=== PATIENT | male | born 1995 | race Caucasian/White ===

== ENCOUNTER 2017-07-09 12:02 | Emergency (ER) | payer MEDICARE, MEDICAID ==
[2017-07-09 13:59] VITALS: BP 102/49
== END 2017-07-09 14:48 | disposition left against medical advice (07) ==
LOC: ED 12:02
DX: M79.606 Pain in leg, unspecified (principal); Z53.21 Procedure and treatment not carried out due to patient leaving prior to being seen by health care provider

== ENCOUNTER 2017-10-29 16:26 | Emergency (ER) | payer MEDICARE, MEDICAID ==
[2017-10-29 17:20] LABS: Hematocrit 44 % (42-52); Hemoglobin 14.7 g/dl (14.0-18.0); Mean Corpuscular HGB Conc 34 g/dl (31-36); Mean Corpuscular Hemoglobin 30 pg (27-31); Mean Corpuscular Volume 89 fL (80-94); Mean Platelet Volume 8 um3 (7.4-10.4); Red Cell Distribution Width 13 % (10.5-15); White Blood Count 11.4 10^3/ul (3.5-10.8)
[2017-10-29 17:34] LABS: ALT 17 U/L (7-52); AST 14 U/L (13-39); Albumin 4.5 g/dL (3.2-5.2); Alkaline Phosphatase 55 U/L (34-104); Anion Gap 6 mmol/L (2-11); BUN/Creatinine Ratio 15.2 (8-20); Blood Urea Nitrogen 15 mg/dL (6-24); CO2 Carbon Dioxide 28 mmol/L (22-32); Calcium 9.4 mg/dL (8.6-10.3); Chloride 103 mmol/L (101-111); EGFR African American 122.7 (>60); EGFR Non-African American 95.4 (>60); Globulin 2.8 g/dL (2-4); Glucose 101 mg/dL (70-100); Potassium 4.1 mmol/L (3.5-5.0); Sodium 137 mmol/L (133-145); Total Protein 7.3 g/dL (6.4-8.9)
[2017-10-29 17:53] LABS: Urine Bilirubin Negative (Negative); Urine Glucose Negative (Negative); Urine Nitrite Negative (Negative)
[2017-10-29 18:02] LABS: Acetaminophen < 15 mcg/mL; Alcohol < 10 mg/dL (<10); Salicylate < 2.50 mg/dL (<30)
[2017-10-29 18:04] LABS: Benzodiazepine Urine Screen None Detected (None Detect)
[2017-10-29 18:17] LABS: TSH (Thyroid Stimulating Horm) 0.86 mcIU/mL (0.34-5.60)
[2017-10-29] MEDS ORDERED: Nicotine Inhaler* 10 MG AMP INH PRN (18:51)
[2017-10-29] MEDS ORDERED: Mouth Piece, Nicotine* 1 EACH CARTRIDGE ONE (18:53)
[2017-10-29] MEDS ORDERED: Nicotine Inhaler* 10 MG AMP ONE (18:53)
[2017-10-29] MEDS ORDERED: Acetaminophen TAB* 325 MG PO ONE (21:02)
[2017-10-29] MEDS ORDERED: Acetaminophen TAB* 325 MG ONE (21:04)
[2017-10-29 22:15] VITALS: BP 176/89
--- NOTE | 2017-10-29 22:35 | ED ---
Fernie Plunkett Benjamin, scribed for Goyo Faulkner MD on 10/29/17 at 1722 . Psychiatric Complaint - HPI Summary HPI Summary: 22yo male brought in 941 for SI. Pt admits having thoughts, but denies any attempts or plans. Lots of stressful situation revolving him and pt feels very frustrated. - History Of Current Complaint Chief Complaint: EDMentalHealth Time Seen by Provider: 10/29/17 16:50 Hx Obtained From: Patient Onset/Duration: Sudden Onset, Lasting Days, Still Present Timing: Constant Severity Initially: Mild Severity Currently: Mild Character: Depressed, Frustrated Aggravating Factor(s): Recent Stress Alleviating Factor(s): Nothing Associated Signs And Symptoms: Positive: Negative Has Suicidal: Reports: Thoughts. Denies: With A Plan - Allergies/Home Medications Allergies/Adverse Reactions: Allergies Allergy/AdvReac Type Severity Reaction Status Date / Time Amoxicillin Allergy Unknown Verified 10/29/17 16:48 Reaction Details Ibuprofen [From Advil] Allergy Unknown Verified 10/06/15 12:32 Reaction Details Home Medications: Home Medications Methylphenidate ER TAB* [Concerta ER TAB*] 18 mg PO DAILY 10/29/17 [History Confirmed 10/29/17] QUEtiapine TAB* [SEROquel TAB*] 100 mg PO BEDTIME 10/29/17 [History Confirmed ] carBAMazepine TAB(*) [TEGretol TAB(*)] 200 mg PO BID 10/29/17 [History Confirmed 10/29/17] PMH/Surg Hx/FS Hx/Imm Hx - Immunization History Date of Tetanus Vaccine: Unk Date of Influenza Vaccine: None Infectious Disease History: No Infectious Disease History: Denies: Traveled Outside the [place] in Last 30 Days - Family History Known Family History: Positive: Other - psych disorders Negative: Cardiac Disease - Social History Alcohol Use: None Substance Use Type: Reports: None Smoking Status (MU): Heavy Every Day Tobacco Smoker Review of Systems Constitutional: Negative Eyes: Negative ENT: Negative Cardiovascular: Negative Respiratory: Negative Gastrointestinal: Negative Genitourinary: Negative Musculoskeletal: Negative Skin: Negative Neurological: Negative Positive: Depressed, Other - SI All Other Systems Reviewed And Are Negative: Yes Physical Exam Triage Information Reviewed: Yes Vital Signs On Initial Exam: Initial Vitals Temp Pulse Resp BP Pulse Ox 99.5 F 68 16 117/55 99 10/29/17 16:46 10/29/17 16:46 10/29/17 16:46 10/29/17 16:46 10/29/17 16:46 Vital Signs Reviewed: Yes Appearance: Positive: Well-Appearing, No Pain Distress, Well-Nourished Skin: Positive: Warm, Skin Color Reflects Adequate Perfusion, Dry Head/Face: Positive: Normal Head/Face Inspection Eyes: Positive: EOMI, [place] ENT: Positive: Normal ENT inspection Neck: Positive: Supple, Nontender Respiratory/Lung Sounds: Positive: Clear to Auscultation, Breath Sounds Present Cardiovascular: Positive: RRR Abdomen Description: Positive: Nontender, Soft Bowel Sounds: Positive: Present Musculoskeletal: Positive: Strength/ROM Intact Neurological: Positive: Sensory/Motor Intact, Alert, Oriented to Person Place, Time Psychiatric: Positive: Affect/Mood Appropriate Diagnostics - Vital Signs Vital Signs Temp Pulse Resp BP Pulse Ox 10/29/17 16:46 99.5 F 68 16 117/55 99 - Laboratory Lab Results: Lab Results 10/29/17 10/29/17 10/29/17 Range/Units 17:11 17:11 17:36 WBC 11.4 H (3.5-10.8) 10^3/ul RBC 4.90 (4.0-5.4) 10^6/ul Hgb 14.7 (14.0-18.0) g/dl Hct 44 (42-52) % MCV 89 (80-94) fL MCH 30 (27-31) pg MCHC 34 (31-36) g/dl RDW 13 (10.5-15) % Plt Count 270 (150-450) 10^3/ul MPV 8 (7.4-10.4) um3 Neut % (Auto) 71.3 (38-83) % Lymph % (Auto) 16.9 L (25-47) % [place] % (Auto) 8.4 (1-9) % Eos % (Auto) 2.8 (0-6) % Baso % (Auto) 0.6 (0-2) % Absolute Neuts (auto) 8.2 H (1.5-7.7) 10^3/ul Absolute Lymphs (auto) 1.9 (1.0-4.8) 10^3/ul Absolute Monos (auto) 1.0 H (0-0.8) 10^3/ul Absolute Eos (auto) 0.3 (0-0.6) 10^3/ul Absolute Basos (auto) 0.1 (0-0.2) 10^3/ul Absolute Nucleated RBC 0 10^3/ul Nucleated RBC % 0 Sodium 137 (133-145) mmol/L Potassium 4.1 (3.5-5.0) mmol/L Chloride 103 (101-111) mmol/L Carbon Dioxide 28 (22-32) mmol/L Anion Gap 6 (2-11) mmol/L BUN 15 (6-24) mg/dL Creatinine 0.99 (0.67-1.17) mg/dL Est GFR ( Amer) 122.7 (>60) Est GFR (Non-Af Amer) 95.4 (>60) BUN/Creatinine Ratio 15.2 (8-20) Glucose 101 H (70-100) mg/dL Calcium 9.4 (8.6-10.3) mg/dL Total Bilirubin 0.40 (0.2-1.0) mg/dL AST 14 (13-39) U/L ALT 17 (7-52) U/L Alkaline Phosphatase 55 (34-104) U/L Total Protein 7.3 (6.4-8.9) g/dL Albumin 4.5 (3.2-5.2) g/dL Globulin 2.8 (2-4) g/dL Albumin/Globulin Ratio 1.6 (1-3) TSH 0.86 (0.34-5.60) mcIU/mL Urine Color Urine Appearance Urine pH (5-9) Ur Specific [place] (1.010-1.030) Urine Protein (Negative) Urine Ketones (Negative) Urine Blood (Negative) Urine Nitrate (Negative) Urine Bilirubin (Negative) Urine Urobilinogen (Negative) Ur Leukocyte Esterase (Negative) Urine Glucose (Negative) Salicylates < 2.50 (<30) mg/dL Urine Opiates Screen None detected (None Detect) Acetaminophen < 15 mcg/mL Ur Barbiturates Screen None detected (None Detect) Ur Phencyclidine Scrn None detected (None Detect) Ur Amphetamines Screen None detected (None Detect) U Benzodiazepines Scrn None detected (None Detect) Urine Cocaine Screen None detected (None Detect) U Cannabinoids Screen None detected (None Detect) Serum Alcohol < 10 (<10) mg/dL 10/29/17 Range/Units 17:36 WBC (3.5-10.8) 10^3/ul RBC (4.0-5.4) 10^6/ul Hgb (14.0-18.0) g/dl Hct (42-52) % MCV (80-94) fL MCH (27-31) pg MCHC (31-36) g/dl RDW (10.5-15) % Plt Count (150-450) 10^3/ul MPV (7.4-10.4) um3 Neut % (Auto) (38-83) % Lymph % (Auto) (25-47) % [place] % (Auto) (1-9) % Eos % (Auto) (0-6) % Baso % (Auto) (0-2) % Absolute Neuts (auto) (1.5-7.7) 10^3/ul Absolute Lymphs (auto) (1.0-4.8) 10^3/ul Absolute Monos (auto) (0-0.8) 10^3/ul Absolute Eos (auto) (0-0.6) 10^3/ul Absolute Basos (auto) (0-0.2) 10^3/ul Absolute Nucleated RBC 10^3/ul Nucleated RBC % Sodium (133-145) mmol/L Potassium (3.5-5.0) mmol/L Chloride (101-111) mmol/L Carbon Dioxide (22-32) mmol/L Anion Gap (2-11) mmol/L BUN (6-24) mg/dL Creatinine (0.67-1.17) mg/dL Est GFR ( Amer) (>60) Est GFR (Non-Af Amer) (>60) BUN/Creatinine Ratio (8-20) Glucose (70-100) mg/dL Calcium (8.6-10.3) mg/dL Total Bilirubin (0.2-1.0) mg/dL AST (13-39) U/L ALT (7-52) U/L Alkaline Phosphatase (34-104) U/L Total Protein (6.4-8.9) g/dL Albumin (3.2-5.2) g/dL Globulin (2-4) g/dL Albumin/Globulin Ratio (1-3) TSH (0.34-5.60) mcIU/mL Urine Color Yellow Urine Appearance Clear Urine pH 6.0 (5-9) Ur Specific [place] 1.028 (1.010-1.030) Urine Protein Negative (Negative) Urine Ketones Negative (Negative) Urine Blood Negative (Negative) Urine Nitrate Negative (Negative) Urine Bilirubin Negative (Negative) Urine Urobilinogen Negative (Negative) Ur Leukocyte Esterase Negative (Negative) Urine Glucose Negative (Negative) Salicylates (<30) mg/dL Urine Opiates Screen (None Detect) Acetaminophen mcg/mL Ur Barbiturates Screen (None Detect) Ur Phencyclidine Scrn (None Detect) Ur Amphetamines Screen (None Detect) U Benzodiazepines Scrn (None Detect) Urine Cocaine Screen (None Detect) U Cannabinoids Screen (None Detect) Serum Alcohol (<10) mg/dL Result Diagrams: 10/29/17 17:11 10/29/17 17:11 Lab Statement: Any lab studies that have been ordered have been reviewed, and results considered in the medical decision making process. Course/Dx - Course Course Of Treatment: BP noted. Allergies noted. Medications reviewed. Medically cleared at 1816 hour. - Differential Dx/Clinical Impression Provider Diagnosis: Mental health problem Discharge - Discharge Plan Condition: Stable Disposition: HOME Referrals: [facility] [Outside] - As Soon As Possible (Go to your schedule about with [facility]) Yanira Reeves MD [Primary Care Provider] - The documentation as recorded by the Fernie novak Benjamin accurately reflects the service I personally performed and the decisions made by me, Goyo Faulkner MD.
== END 2017-10-29 22:31 | disposition home or self-care (01) ==
LOC: ED 16:26
DX: Z00.8 Encounter for other general examination (principal)
CPT/HCPCS: 36415; 80053; 80307; 80320; 80329; 81003; 84443; 85025; 99285; A9270-GY; G0480

== ENCOUNTER 2018-06-18 13:45 | Emergency (ER) | payer MEDICARE, MEDICAID ==
[2018-06-18 14:03] VITALS: BP 103/46
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
== END 2018-06-18 16:03 | disposition home or self-care (01) ==
LOC: UCEAST 13:45
DX: M25.561 Pain in right knee (principal); M25.531 Pain in right wrist; M54.9 Dorsalgia, unspecified; Z88.0 Allergy status to penicillin; Z88.1 Allergy status to other antibiotic agents; F17.200 Nicotine dependence, unspecified, uncomplicated
CPT/HCPCS: 72070; 72110; 99212; G0463

== ENCOUNTER 2019-01-14 19:20 | Emergency (ER) | payer MEDICARE, MEDICAID ==
[2019-01-14 19:58] VITALS: BP 126/66
[2019-01-14] MEDS ORDERED: Amoxicillin/Clavulanate TAB* 875 MG PO ONE (20:04)
[2019-01-14] MEDS ORDERED: Acetaminophen TAB* 325 MG PO ONE (20:05)
--- NOTE | 2019-01-14 20:13 | UC ---
Ear Complaint HPI - HPI Summary HPI Summary: 23-year-old otherwise healthy male presents with bilateral ear pain that began this morning. He states that his right ear began to hurt first and then he lost hearing in it. Shortly thereafter, his left ear began to hurt and now is hurting more significantly than the right. He reports that he had cough and cold symptoms with congestion and a proximal a week ago. He denies any fever or shakes or chills and has had no nausea vomiting or diarrhea. He is a smoker. Nobody else has been ill in his home. - History of Current Complaint Chief Complaint: UCEar Stated Complaint: EAR COMPLAINT Time Seen by Provider: 01/14/19 19:45 Hx Obtained From: Patient Pain Intensity: 8 - Allergies/Home Medications Allergies/Adverse Reactions: Allergies Allergy/AdvReac Type Severity Reaction Status Date / Time amoxicillin Allergy Rash Verified 01/14/19 19:53 ibuprofen [From Advil] Allergy Rash Verified 01/14/19 19:53 PMH/Surg Hx/FS Hx/Imm Hx Previously Healthy: Yes - Surgical History Surgical History: None - Family History Known Family History: Positive: Other - psych disorders Negative: Cardiac Disease - Social History Alcohol Use: None Alcohol Amount: 8 months clean Substance Use Type: Marijuana Substance Use Comment - Amount & Last Used: occasionally Smoking Status (MU): Heavy Every Day Tobacco Smoker Review of Systems All Other Systems Reviewed And Are Negative: Yes Constitutional: Negative: Fever Skin: Negative: Rash Eyes: Positive: Negative ENT: Positive: Ear Ache, Other. Negative: Dental Pain, Sore Throat, Nasal Discharge Respiratory: Negative: Cough - Muffled hearing Cardiovascular: Positive: Negative Physical Exam Triage Information Reviewed: Yes Appearance: Well-Appearing, No Pain Distress, Well-Nourished Vital Signs: Initial Vital Signs Temp 98.3 F 01/14/19 19:53 Pulse 96 01/14/19 19:53 Resp 18 01/14/19 19:53 BP 126/66 01/14/19 19:53 Pulse Ox 98 01/14/19 19:53 Eye Exam: Normal ENT: Positive: Pharynx normal, TM bulging - With exudative effusions, TM red, Other - No mastoid tenderness or redness. Negative: Nasal congestion, Nasal drainage, Tonsillar swelling, Tonsillar exudate, Dental tenderness, Sinus tenderness Neck: Positive: Supple, Nontender, No Lymphadenopathy Respiratory: Positive: Lungs clear Cardiovascular: Positive: RRR Neurological Exam: Normal Psychological Exam: Normal Skin Exam: Normal Ear Complaint Course/Dx - Course Course Of Treatment: Nurse's notes reviewed. Patient with bilateral otitis media with exudative effusions. He is at risk for perforation. He is placed on decongestant, first dose of Augmentin given here. He states that he can take amoxicillin but lists allergy to penicillin which gave him a mild rash as a child. He cannot take ibuprofen. Tylenol was given. Topical lidocaine in the ears helped his pain. - Differential Dx/Diagnosis Provider Diagnosis: Suppurative otitis media of both ears Discharge - Sign-Out/Discharge Documenting (check all that apply): Patient Departure All imaging exams completed and their final reports reviewed: No Studies - Discharge Plan Condition: Improved Disposition: HOME Prescriptions: Amoxicillin/Clavulanate TAB* [Augmentin TAB 875*] 875 mg PO BID #19 tab Guaifenesin/Pseudo 600/60(NF) [Mucinex D 600/60 (NF)] 1 tab PO Q12H PRN #12 tab PRN Reason: congestion/ear pain Patient Education Materials: Ear Infection (ED) Forms: *Work Release Referrals: [facility] [Outside] [facility] [Outside] Additional Instructions: Tylenol as needed for discomfort. Antibiotic is twice daily. Fill the prescriptions in the morning. Call for a follow-up appointment with [facility]. Primary care referral has been given to use as well. Return with severe headache, fever, repetitive vomiting, worse, new symptoms or other concerns. - Billing Disposition and Condition Condition: IMPROVED Disposition: Home - Attestation Statements Document Initiated by Wilfredo: Rossana
== END 2019-01-14 20:37 | disposition home or self-care (01) ==
LOC: UCEAST 19:20
DX: H66.43 Suppurative otitis media, unspecified, bilateral (principal); F17.200 Nicotine dependence, unspecified, uncomplicated; R05 Cough; Z88.0 Allergy status to penicillin; Z88.8 Allergy status to other drugs, medicaments and biological substances
CPT/HCPCS: 99212; A9270-GY; G0463

== ENCOUNTER 2019-12-22 10:14 | Emergency (ER) | payer MEDICARE, MEDICAID ==
[2019-12-22 10:33] VITALS: BP 119/71
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
== END 2019-12-22 11:02 | disposition home or self-care (01) ==
LOC: ED 10:14
DX: H92.01 Otalgia, right ear (principal); F17.200 Nicotine dependence, unspecified, uncomplicated; Z88.0 Allergy status to penicillin; Z88.8 Allergy status to other drugs, medicaments and biological substances
CPT/HCPCS: 99281

== ENCOUNTER 2024-01-04 16:38 | Inpatient (IN) ==
[2024-01-04 17:33] LABS: ABS Basophils 0.1 10^3/uL (0.0-0.1); ABS Lymphocytes 1.9 10^3/uL (1.0-4.8); ABS Monocytes 1.3 10^3/uL (0.0-1.1); ABS Neutrophils 17.3 10^3/uL (1.5-7.6); ABS Nucleated RBC 0.02 10^3/ul; Eosinophil % 0.2 %; Hemoglobin 15.8 g/dL (13.2-16.3); Lymphocyte % 9.1 %; Mean Corpuscular Hemoglobin 29.8 pg (27-33); Mean Corpuscular Hgb Conc 34.3 g/dL (31-36); Mean Corpuscular Volume 87.1 fL (80-97); Mean Platelet Volume 8.3 fL (7.5-11.2); Nucleated Red Blood Cells % 0.1 %/100WBC (0.0-0.8); Platelet Count 334 10^3/uL (150-450); Red Blood Count 5.28 10^6/uL (4.06-5.63); Red Cell Distribution Width 12.7 % (12-17); White Blood Count 20.6 10^3/uL (3.6-10.2)
[2024-01-04 18:01] LABS: ALT 21 U/L (7-52); AST 20 U/L (13-39); Acetaminophen < 15 mcg/mL; Albumin 4.5 g/dL (3.2-5.2); Albumin/Globulin Ratio 1.6 (1-3); Alcohol, S < 13 mg/dL (<13); Alkaline Phosphatase 68 U/L (35-149); Anion Gap 8 mmol/L (2-16); Blood Urea Nitrogen 13 mg/dL (6-24); CO2 Carbon Dioxide 26 mmol/L (22-32); Calcium 9.9 mg/dL (8.6-10.3); Chloride 103 mmol/L (101-111); Creatinine, Serum 1.11 mg/dL (0.67-1.17); Globulin 2.9 g/dL (2-4); Glucose 95 mg/dL (70-100); Salicylate < 2.50 mg/dL (<30); Sodium 137 mmol/L (135-145); Total Bilirubin 0.5 mg/dL (0.2-1.0); Total Protein 7.4 g/dL (6.4-8.9); eGFR CKD-EPI 93.3 (>60)
[2024-01-04 18:14] LABS: TSH Ultra Thyroid Stim Horm 0.62 mcIU/mL (0.34-5.60)
[2024-01-04 18:19] LABS: Urine Benzodiazepine Screen None Detected (None Detect); Urine Cannabinoids Screen Presumptive Positive (None Detect); Urine Opiates Screen None Detected (None Detect)
[2024-01-04 18:24] LABS: Urine Amorphous Crystals Present /HPF (Absent); Urine Appearance Turbid; Urine Bacteria Absent (Absent); Urine Bilirubin Negative (Negative); Urine Blood 2+ (Negative); Urine Color Yellow; Urine Glucose Negative (Negative); Urine Ketones 1+ (Negative); Urine Nitrite Negative (Negative); Urine Protein 1+(30 mg/dL) (Negative); Urine Red Blood Cell Trace(0-2/hpf) (Absent); Urine Specific Gravity 1.019 (1.002-1.030); Urine Squamous Epithelial Cell Present (Absent); Urine Urobilinogen Negative (Negative); Urine White Blood Cell Trace(0-5/hpf) (Absent)
[2024-01-04] MEDS ORDERED: Al Hydrox/Mg Hydrox/Simet LIQ 30 ML UDC PO PRN (22:00)
[2024-01-04] MEDS ORDERED: Nicotine Lozenge mini 4 MG LOZNG.MINI MT PRN (22:00)
[2024-01-04] MEDS: Nicotine GUM 4MG FRUIT FLAVOR PO PRN (22:31)
[2024-01-05 08:13] LABS: HDL Cholesterol 28.4 mg/dL
[2024-01-05] MEDS: Nicotine PATCH 21 MG/24 HR PATCH TRANSDERM SCH (09:36)
[2024-01-05] MEDS: Vitamin THERAPEUTIC TAB PO SCH (09:37)
[2024-01-09 10:30] LABS: ABS Basophils 0.1 10^3/uL (0.0-0.1); ABS Eosinophils 0.2 10^3/uL (0.0-0.5); ABS Lymphocytes 2.5 10^3/uL (1.0-4.8); ABS Monocytes 0.7 10^3/uL (0.0-1.1); ABS Neutrophils 3.3 10^3/uL (1.5-7.6); Hemoglobin 14.1 g/dL (13.2-16.3); Lymphocyte % 36.9 %; Mean Corpuscular Hemoglobin 30.2 pg (27-33); Mean Corpuscular Hgb Conc 34.5 g/dL (31-36); Mean Corpuscular Volume 87.5 fL (80-97); Mean Platelet Volume 8.6 fL (7.5-11.2); Nucleated Red Blood Cells % 0.1 %/100WBC (0.0-0.8); Platelet Count 269 10^3/uL (150-450); Red Blood Count 4.68 10^6/uL (4.06-5.63); Red Cell Distribution Width 12.6 % (12-17); White Blood Count 6.8 10^3/uL (3.6-10.2)
[2024-01-11 08:31] VITALS: BP 110/95
== END 2024-01-11 15:17 | disposition home or self-care (01) | DRG 885 ==
LOC: ED 16:38 → EDHOLD 21:39 → BSU 21:45
PROVIDERS: ADMIT Student in an Organized Health Care Education/Training Program; ATTEND Psychiatry & Neurology Psychiatry